=== PATIENT | male | born 1955 | race Caucasian/White ===

== ENCOUNTER 2020-12-04 09:34 | Emergency (ER) | payer MEDICARE, SELFPAY ==
[2020-12-04 09:52] VITALS: BP 152/70; PULSE 90; RESP 18; TEMP 37.2; O2SAT 98
--- NOTE | 2020-12-04 09:57 | ED.SKABFB ---
HPI - Skin/Abscess/Foreign Bdy General Chief complaint: Epistaxis Stated complaint: Nose is Bleeding Time Seen by Provider: 12/04/20 09:57 Source: patient and RN notes reviewed Mode of arrival: ambulatory Limitations: no limitations History of Present Illness HPI narrative: 65-year-old male presents to the [facility] with complaints of a bleeding lesions to the left side of nose. States has been bleeding since 06. Patient reports that he was in the shower washing his face when he noticed blood. Has been holding pressure since 645 without stopping of the bleeding. Denies taking any blood thinners. Currently taking 81 mg of aspirin. Has a history of high blood pressure, gout, high cholesterol, prostate issues and GERD. Related Data Home Medications Medication Instructions Recorded Confirmed allopurinol 100 mg PO DAILY 12/04/20 12/04/20 amlodipine 5 mg PO DAILY 12/04/20 12/04/20 aspirin 81 mg PO DAILY 12/04/20 12/04/20 atorvastatin 20 mg PO DAILY 12/04/20 12/04/20 famotidine 40 mg PO HS 12/04/20 12/04/20 finasteride 5 mg PO HS 12/04/20 12/04/20 montelukast 10 mg PO HS 12/04/20 12/04/20 omeprazole 1 mg PO DAILY 12/04/20 12/04/20 trazodone 50 mg PO HS 12/04/20 12/04/20 Allergies Allergy/AdvReac Type Severity Reaction Status Date / Time No Known Allergies Allergy Verified 12/04/20 10:08 Review of Systems Review of Systems: All systems reviewed & are unremarkable except as noted in HPI and below Constitutional: Constitutional: Reports no additional constitutional complaints, Denies chills and Denies fever(s) Eyes: Eyes: Reports no additional eye complaints and Denies change in vision ENT: Reports system reviewed and no additional complaints, except as documented, Denies vertigo, Denies dizziness, Denies nasal congestion and Denies sore throat Cardiovascular: Cardiovascular: Reports no additional cardiovascular complaints and Denies chest pain Respiratory: Respiratory: Reports no additional respiratory complaints, Denies cough and Denies dyspnea Gastrointestinal: Gastrointestinal: Reports no additional gastrointestinal complaints Musculoskeletal: Musculoskeletal: Reports no additional musculoskeletal complaints Integumentary/Breasts: Skin/Breast: Reports as per HPI, Denies erythema and Denies rash Comments: Left side of nose, lesion bleeding. Neurologic: Reports system reviewed and no additional complaints, except as documented Psychiatric: Psychiatric: Reports no additional psychiatric complaints Allergic/Immunologic: Allergic/Immunologic: Reports no additional allergic/immunologic complaints PENDING SALE TO [facility] Past Medical History Medical History (Updated 12/04/20 @ 18:15 by Marquita Santos) Gout High cholesterol History of gastroesophageal reflux (GERD) Hypertension Social History Social History Gender identity (if verbalized by the patient): Male Comments At the time of my signature, I reviewed and agree with the nursing past medical, surgical, social, and family history. There is no relevant family history pertinent to the patient complaint. Exam Const: General: healthy appearing, no acute distress and alert Nutritional Appearance: well nourished Orientation/consciousness: patient oriented x3 Limitations: no limitations HENMT: Head: normal to inspection General nose exam: Normal nares present and No nasal polyps present Nose image: 1. Lesion on nose, bleeding. Eyes: Conjunctivae: conjunctivae normal Pupils: Equal, round and reactive pupils present Neck: Neck: normal visual inspection, no lymphadenopathy and no meningeal signs Chest: Chest palpation & inspection: normal inspection of the chest Resp: Effort & Inspection: normal respiratory effort and no use of accessory muscles Auscultation: clear to auscultation bilaterally, no crackles, no rales, no rhonchi and no wheezes Cardio: Rate: regular rate Rhythm: regular rhythm Back/Spine/Pelv
== END 2020-12-04 10:25 | disposition home or self-care (01) ==
PROVIDERS: Emergency Provider Nurse Practitioner
DX: S01.20XA Unspecified open wound of nose, initial encounter (principal); X58.XXXA Exposure to other specified factors, initial encounter
CPT/HCPCS: 12011; 99212; G0463